=== PATIENT | male | born 1950 | race Caucasian/White ===

== ENCOUNTER 2019-05-23 20:48 | Emergency (ER) | payer OTHER ==
[~2019-05-23] VITALS: Ht 190.5 cm; Wt 109.0 kg
[2019-05-23] MEDS ORDERED: SODIUM CHLORIDE 0.9% 1,000 ML IV ONE (23:02)
[2019-05-23 23:35] LABS: HEMATOCRIT. 35.4 % (42.0-52.0); HEMOGLOBIN. 12.1 g/dL (14.0-18.0); MEAN CORPUSCULAR HEMOGLOBIN 33.4 pg (28.0-32.0); MEAN CORPUSCULAR VOLUME 97.6 fL (80.0-94.0); MEAN PLATELET VOLUME 7.6 fl (7.4-10.4); PLATELET 231 x1000/uL (130-400); RED BLOOD CELL COUNT 3.62 mill/uL (4.7-6.1); RED CELL DISTRIBUTION WIDTH 13.4 % (11.6-14.6)
[2019-05-23 23:47] LABS: CHLORIDE 104 mEq/L (98-107)
[2019-05-24 00:30] LABS: PLATELET ESTIMATE NORMAL
[2019-05-24] MEDS ORDERED: ACETAMINOPHEN 325MG TABLET PO ONE (01:45)
[2019-05-24 04:17] LABS: CLARITY URINE CLEAR (CLEAR); COLOR URINE DARK YELLOW (YELLOW); KETONES URINE TRACE (NEGATIVE); LEUKOCYTE ESTERASE URINE NEGATIVE (NEGATIVE); NITRITE URINE NEGATIVE (NEGATIVE); OCCULT BLOOD URINE NEGATIVE (NEGATIVE); PROTEIN URINE 1+ (NEGATIVE); SPECIFIC GRAVITY URINE 1.027 (1.005-1.030)
[2019-05-24 05:10] VITALS: BP 115/61
== END 2019-05-24 05:22 | disposition home or self-care (01) ==
LOC: ER 20:48
DX: J32.9 Chronic sinusitis, unspecified (principal)
CPT/HCPCS: 36415; 71045; 80053; 81003; 83605; 84484; 85025; 87804; 93005; 99284; J7030

== ENCOUNTER 2020-06-16 01:24 | Emergency (ER) | payer OTHER ==
[~2020-06-16] VITALS: Ht 193 cm; Wt 118.8 kg
[2020-06-16] MEDS ORDERED: ENALAPRIL 5MG TABLET PO SCH (02:30)
[2020-06-16] MEDS ORDERED: ACETAMINOPHEN 325MG TABLET PO ONE (02:30)
[2020-06-16 04:14] VITALS: BP 166/95
== END 2020-06-16 04:30 | disposition home or self-care (01) ==
LOC: ER 01:24
DX: I10 Essential (primary) hypertension (principal)
CPT/HCPCS: 93005; 99283

== ENCOUNTER 2021-01-16 15:28 | Inpatient (IN) | payer OTHER ==
[~2021-01-16] VITALS: Ht 193 cm; Wt 117.0 kg
[~2021-01-16 15:28] MED LIST: AMLO5TAB4 MT; ASPI-1497 PO; ATOR20TA PO; CLOP-31 MT
[2021-01-16 16:35] LABS: BASOPHILS % 0.8 % (0.0-2.0); EOSINOPHILS % 2.1 % (0.0-5.0); HEMOGLOBIN. 12.6 g/dL (14.0-18.0); LYMPHOCYTES % 35.1 % (20.0-50.0); MEAN CORPUSCULAR HEMOGLOBIN 33.6 pg (28.0-32.0); MEAN PLATELET VOLUME 8.1 fl (7.4-10.4); MONOCYTES % 8.6 % (2.0-8.0); NEUTROPHILS % 53.4 % (40.0-76.0); PLATELET 214 x1000/uL (130-400); RED BLOOD CELL COUNT 3.75 mill/uL (4.7-6.1); RED CELL DISTRIBUTION WIDTH 13.4 % (11.6-14.6)
[2021-01-16 16:36] LABS: CHLORIDE 110 mEq/L (98-107)
[2021-01-16 16:41] LABS: PARTIAL THROMBOPLASTIN TIME 24.8 sec (23.4-31.0)
[2021-01-16] MEDS ORDERED: ASPIRIN 325MG EC TABLET PO ONE (17:30)
[2021-01-17] VITALS: BP 143/85
[2021-01-17 04:00] VITALS: BP 112/60
[2021-01-17 08:00] VITALS: BP_SYST 136; BP_SYST 138; BP_SYST 152; BP_DIAS 75; BP_DIAS 84; BP_DIAS 85
[2021-01-17] MEDS: AMLODIPINE 5MG TABLET PO SCH ×2 (08:37→21:04)
[2021-01-17] MEDS: ASPIRIN 81MG TABLET PO SCH (08:37)
[2021-01-17] MEDS: CLOPIDOGREL 75MG TABLET PO SCH (08:37)
[2021-01-17] MEDS: HEPARIN 5000 UNITS/ML VIAL SUBCUT SCH ×2 (08:39→20:56)
[2021-01-17 08:59] LABS: EOSINOPHILS % 2.3 % (0.0-5.0); HEMATOCRIT. 37.5 % (42.0-52.0); LYMPHOCYTES % 30.7 % (20.0-50.0); MEAN CORPUSCULAR HEMOGLOBIN 33.4 pg (28.0-32.0); MEAN CORPUSCULAR VOLUME 96.2 fL (80.0-94.0); MEAN PLATELET VOLUME 8.1 fl (7.4-10.4); MONOCYTES % 7.4 % (2.0-8.0); NEUTROPHILS % 58.6 % (40.0-76.0); PLATELET 195 x1000/uL (130-400); RED CELL DISTRIBUTION WIDTH 13.4 % (11.6-14.6)
[2021-01-17 09:03] LABS: CHLORIDE 110 mEq/L (98-107)
[2021-01-17 12:00] VITALS: BP 133/79
[2021-01-17 16:00] VITALS: BP 137/82
[2021-01-17 20:00] VITALS: BP 129/86
[2021-01-17] MEDS ORDERED: ATORVASTATIN CALCIUM 40MG TABLET PO SCH (21:00)
[2021-01-18] VITALS: BP 136/60
[2021-01-18 04:00] VITALS: BP 112/53
[2021-01-18 08:00] VITALS: BP_SYST 133; BP_SYST 134; BP_SYST 149; BP_DIAS 73; BP_DIAS 80; BP_DIAS 83
[2021-01-18] MEDS: ASPIRIN 81MG TABLET PO SCH (08:43)
[2021-01-18] MEDS: HEPARIN 5000 UNITS/ML VIAL SUBCUT SCH ×3 (08:43→09:00)
[2021-01-18] MEDS: AMLODIPINE 5MG TABLET PO SCH (08:43)
[2021-01-18] MEDS: CLOPIDOGREL 75MG TABLET PO SCH (08:43)
[2021-01-18] MEDS ORDERED: LEVETIRACETAM 500MG TABLET PO SCH (09:00)
[2021-01-18 12:00] VITALS: BP 136/79
[2021-01-18 15:26] VITALS: BP 136/79
== END 2021-01-18 16:00 | disposition home or self-care (01) | DRG 69 ==
LOC: ER 15:28 → 7EST 20:56 → ENRESERV 22:00
PROVIDERS: ADMIT Internal Medicine; ATTEND Internal Medicine
DX: G45.9 Transient cerebral ischemic attack, unspecified (principal); J44.1 Chronic obstructive pulmonary disease with (acute) exacerbation; E78.00 Pure hypercholesterolemia, unspecified; I44.4 Left anterior fascicular block; I12.9 Hypertensive chronic kidney disease with stage 1 through stage 4 chronic kidney disease, or unspecified chronic kidney disease; N18.9 Chronic kidney disease, unspecified; E78.5 Hyperlipidemia, unspecified; F41.9 Anxiety disorder, unspecified; Z20.822 Contact with and (suspected) exposure to COVID-19; D64.9 Anemia, unspecified; Z79.82 Long term (current) use of aspirin; Z79.899 Other long term (current) drug therapy; Z82.49 Family history of ischemic heart disease and other diseases of the circulatory system; Z87.891 Personal history of nicotine dependence; Z86.73 Personal history of transient ischemic attack (TIA), and cerebral infarction without residual deficits; E87.8 Other disorders of electrolyte and fluid balance, not elsewhere classified; R56.9 Unspecified convulsions
CPT/HCPCS: 36415; 70551; 71045; 80053; 82962; 83880; 84484; 85025; 87426; 93005; 97162; 99285; J1644

== ENCOUNTER 2021-01-24 20:12 | Emergency (ER) | payer OTHER ==
[~2021-01-24] VITALS: Ht 193 cm; Wt 118.0 kg
[2021-01-24 20:35] VITALS: BP 131/67
[2021-01-24 23:27] LABS: CLARITY URINE CLEAR (CLEAR); COLOR URINE YELLOW (YELLOW); KETONES URINE NEGATIVE (NEGATIVE); LEUKOCYTE ESTERASE URINE 1+ (NEGATIVE); NITRITE URINE NEGATIVE (NEGATIVE); OCCULT BLOOD URINE NEGATIVE (NEGATIVE); PROTEIN URINE NEGATIVE (NEGATIVE)
== END 2021-01-24 22:37 | disposition left against medical advice (07) ==
LOC: ER 20:12
DX: I63.9 Cerebral infarction, unspecified (principal); Z53.21 Procedure and treatment not carried out due to patient leaving prior to being seen by health care provider
CPT/HCPCS: 81003; 93005

== ENCOUNTER 2021-02-03 17:25 | Emergency (ER) | payer OTHER ==
[~2021-02-03] VITALS: Ht 190.5 cm; Wt 120.3 kg
[2021-02-03 19:10] LABS: BASOPHILS % 0.8 % (0.0-2.0); EOSINOPHILS % 1.7 % (0.0-5.0); HEMOGLOBIN. 12.8 g/dL (14.0-18.0); LYMPHOCYTES % 29.9 % (20.0-50.0); MEAN CORPUSCULAR HEMOGLOBIN 33.9 pg (28.0-32.0); MEAN CORPUSCULAR VOLUME 95.3 fL (80.0-94.0); MEAN PLATELET VOLUME 7.7 fl (7.4-10.4); MONOCYTES % 7.1 % (2.0-8.0); NEUTROPHILS % 60.5 % (40.0-76.0); PLATELET 203 x1000/uL (130-400); RED BLOOD CELL COUNT 3.78 mill/uL (4.7-6.1); RED CELL DISTRIBUTION WIDTH 13.1 % (11.6-14.6)
[2021-02-03 19:18] LABS: CHLORIDE 109 mEq/L (98-107)
[2021-02-03 22:28] VITALS: BP 148/75
== END 2021-02-03 22:29 | disposition home or self-care (01) ==
LOC: ER 17:25
DX: R20.2 Paresthesia of skin (principal); I10 Essential (primary) hypertension; J40 Bronchitis, not specified as acute or chronic; Z79.82 Long term (current) use of aspirin; Z86.73 Personal history of transient ischemic attack (TIA), and cerebral infarction without residual deficits; Z98.890 Other specified postprocedural states
CPT/HCPCS: 36415; 80053; 82330; 82962; 85025; 93005; 99284

== ENCOUNTER 2021-02-16 11:35 | Emergency (ER) | payer OTHER ==
[~2021-02-16] VITALS: Ht 193 cm; Wt 120.0 kg
[2021-02-16] MEDS ORDERED: KETOROLAC 30MG/ML VIAL IV STA (12:25)
[2021-02-16] MEDS ORDERED: SODIUM CHLORIDE 0.9% 1,000 ML IV ONE (12:30)
[2021-02-16 12:59] LABS: BASOPHILS % 0.7 % (0.0-2.0); EOSINOPHILS % 2.2 % (0.0-5.0); LYMPHOCYTES % 25.5 % (20.0-50.0); MEAN CORPUSCULAR HEMOGLOBIN 33.5 pg (28.0-32.0); MEAN PLATELET VOLUME 7.8 fl (7.4-10.4); MONOCYTES % 7.3 % (2.0-8.0); NEUTROPHILS % 64.3 % (40.0-76.0); PLATELET 202 x1000/uL (130-400); RED CELL DISTRIBUTION WIDTH 13.2 % (11.6-14.6)
[2021-02-16 13:04] LABS: CHLORIDE 110 mEq/L (98-107)
[2021-02-16 13:07] LABS: PROTHROMBIN TIME 10.8 sec (9.6-11.0)
[2021-02-16 13:48] LABS: CLARITY URINE CLEAR (CLEAR); COLOR URINE YELLOW (YELLOW); KETONES URINE NEGATIVE (NEGATIVE); LEUKOCYTE ESTERASE URINE TRACE (NEGATIVE); NITRITE URINE NEGATIVE (NEGATIVE); OCCULT BLOOD URINE NEGATIVE (NEGATIVE); PROTEIN URINE NEGATIVE (NEGATIVE); SPECIFIC GRAVITY URINE 1.006 (1.005-1.030); UROBILINOGEN URINE 0.2 E.U./dL (0.2-1.0)
[2021-02-16] MEDS ORDERED: ASPIRIN 325MG EC TABLET PO ONE (15:00)
[2021-02-16] MEDS ORDERED: ONDANSETRON HCL 4MG/2ML INJ IV PRN (16:45)
[2021-02-16] MEDS ORDERED: ACETAMINOPHEN 325MG TABLET PO PRN (16:45)
[2021-02-16] MEDS ORDERED: DIPHENHYDRAMINE 50MG/ML VIAL IV PRN (16:45)
[2021-02-16] MEDS ORDERED: HYDROCODONE/ACETAMINOPHEN 5/325MG TABLET PO PRN (16:45)
[2021-02-16] MEDS ORDERED: GUAIFENESIN 200MG/10ML SUGAR FREE UDC PO PRN (16:45)
[2021-02-16] MEDS ORDERED: MAGNESIUM/ALUMINUM HYDROXIDE/SIMETHICONE 30ML UDC PO PRN (16:45)
[2021-02-16] MEDS ORDERED: CLONIDINE 0.1MG TABLET PO PRN (16:45)
[2021-02-16] MEDS ORDERED: NA PHOS,M-B/NA PHOS,DI-BA ENEMA 118ML PR PRN (16:45)
[2021-02-16] MEDS ORDERED: DOCUSATE SODIUM 100MG CAPSULE PO PRN (16:45)
[2021-02-16] MEDS ORDERED: LORAZEPAM 0.5MG TABLET PO PRN (16:45)
[2021-02-16] MEDS ORDERED: ACETAMINOPHEN 650MG SUPP PR PRN (16:45)
[2021-02-16] MEDS ORDERED: IPRATROPIUM/ALBUTEROL 0.5-3(2.5)MG/3ML NEB NEB PRN (16:45)
[2021-02-16] MEDS ORDERED: CLOPIDOGREL 75MG TABLET PO SCH (17:00)
[2021-02-16] MEDS ORDERED: NALOXONE HCL 0.4MG/ML VIAL IV PRN (17:00)
[2021-02-16 17:16] VITALS: BP 138/74
[2021-02-16] MEDS ORDERED: ENOXAPARIN 30MG/0.3ML SYR SUBCUT SCH (21:00)
[2021-02-16] MEDS ORDERED: ATORVASTATIN CALCIUM 20MG TABLET PO SCH (21:00)
[2021-02-16] MEDS ORDERED: FAMOTIDINE 20MG TABLET PO SCH ×2 (21:00)
[2021-02-17] MEDS ORDERED: ASPIRIN 81MG EC TABLET PO SCH (09:00)
== END 2021-02-16 17:16 | disposition left against medical advice (07) ==
LOC: ER 11:35 → CANBEDREQ 21:10
DX: R42 Dizziness and giddiness (principal); J44.1 Chronic obstructive pulmonary disease with (acute) exacerbation; I10 Essential (primary) hypertension; Z20.822 Contact with and (suspected) exposure to COVID-19; Z98.890 Other specified postprocedural states; Z86.73 Personal history of transient ischemic attack (TIA), and cerebral infarction without residual deficits
CPT/HCPCS: 36415; 70450; 71045; 74176; 80053; 81003; 82962; 83690; 83880; 84153; 84484; 85025; 85610; 86850; 86900; 86901; 87086; 87426; 93005; 99285; J7030; G0103